=== PATIENT | female | born 1985 | race Caucasian/White ===

== ENCOUNTER 2020-04-29 01:19 | Emergency (ER) | payer OTHER ==
--- NOTE | 2020-04-29 01:40 | PDOC ---
History of Present Illness - General Chief Complaint: ,Possible Stated Complaint: CONTROL PROBLEM Time Seen by Provider: 04/29/20 01:25 History Source: Patient - History of Present Illness Initial Comments: 04/29/20 02:56 34-year-old female reports that she had unprotected sex 2 days ago patient is looking for Plan B. Patient reports that she went to a local pharmacies and Plan B is at a start. Patient is worried that she will get if she does not take Plan B. Denies abdominal pain, nausea, vomiting. Last menstrual period 04/09 No past medical history Current every day smoker Review of Systems - Review of Systems Able to Perform ROS?: Yes Is the patient limited [place] proficient: No Constitutional: No: Symptoms Reported, See HPI, Chills, Diaphoresis, Fever, Loss of Appetite, Malaise, Night Sweats, Weakness, Weight Stable, Unintentional Wgt. Loss, Unexplained wgt Loss, Other *Physical Exam - Physical Exam General Appearance: Yes: Appropriately Dressed HEENT: positive: Normal ENT Inspection Integumentary: positive: Normal Color, Dry, Warm Neurologic: positive: Fully Oriented, Alert, Normal Mood/Affect Medical Decision Making - Medical Decision Making 04/29/20 03:00 A: encounter for emergency contraception P: plan b ua urine Discharge - Discharge Information Problems reviewed: Yes Clinical Impression/Diagnosis: Emergency contraceptive counseling and treatment Disposition: HOME - Follow up/Referral - Patient Discharge Instructions Patient Printed Discharge Instructions: Emergency Contraception - Post Discharge Activity
--- NOTE | 2020-04-29 01:51 | PDOC ---
Medical Decision Making - Medical Decision Making 04/29/20 01:51 Patient seen by the advanced practice provider under my supervision. Ancillary testing reviewed as necessary. I agree with plan as outlined by the advanced practice provider. Discharge - Discharge Information Problems reviewed: Yes Clinical Impression/Diagnosis: Emergency contraceptive counseling and treatment Condition: Stable Disposition: HOME - Follow up/Referral - Patient Discharge Instructions Patient Printed Discharge Instructions: Emergency Contraception - Post Discharge Activity
[2020-04-29 02:46] LABS: URINE APPEARANCE CLOUDY; URINE BILIRUBIN NEGATIVE (NEGATIVE); URINE COLOR YELLOW; URINE GLUCOSE (UA) NEGATIVE (NEGATIVE); URINE KETONE NEGATIVE (NEGATIVE); URINE LEUK ESTERASE NEGATIVE (NEGATIVE); URINE NITRITE NEGATIVE (NEGATIVE); URINE PROTEIN NEGATIVE (NEGATIVE); URINE UROBILINOGEN 0.2 mg/dL (0.2-1.0)
[2020-04-29 02:48] LABS: HCG,QUALITATIVE URINE Negative
[2020-04-29] MEDS ORDERED: LEVONORGESTREL 1.5 MG TABLET (PLAN B ONE-STEP) PO ×2 (02:55→03:12)
[2020-04-29 03:09] VITALS: BP 106/73; PULSE 68; TEMP 98.5; BMI 27.3
[2020-04-29 03:51] LABS: EPI CELLS >36 /uL (0-25.1); HYALINE CASTS 6 /uL (0-3.1); URINE BACTERIA 2067 /uL (0-1359); URINE WBC 54 /uL (0-25.8)
[2020-04-29 04:14] LABS: URINE RBC 3 /uL (0-23.9)
== END 2020-04-29 03:17 | disposition home or self-care (01) ==
LOC: JER 01:19
DX: Z30.9 Encounter for contraceptive management, unspecified (principal)
CPT/HCPCS: 81003; 84703; 99282-25

== ENCOUNTER 2020-11-27 00:47 | Emergency (ER) | payer OTHER ==
[2020-11-27 00:57] VITALS: BP 148/82; PULSE 87; TEMP 98.5; BMI 27.4
[2020-11-27] MEDS ORDERED: ACETAMINOPHEN 1000 MG/100 ML BAG IVPB ONE (01:55)
[2020-11-27 02:38] LABS: BASO % 0.4 % (0-2.0); EOS % 1.7 % (0-4.5); HEMATOCRIT 38.7 % (32.4-45.2); HEMOGLOBIN 13.2 GM/dL (10.7-15.3); LYMPH % 23.5 % (8-40); MCH 31.7 pg (25.7-33.7); MCHC 34.2 g/dl (32.0-36.0); MEAN CELL VOLUME 92.8 fl (80-96); MONO % 9.2 % (3.8-10.2); NEUT % 65.2 % (42.8-82.8); PLATELET COUNT 383 K/MM3 (134-434); RBC 4.17 M/mm3 (3.60-5.2); RDW 13.5 % (11.6-15.6); WHITE BLOOD COUNT 10.8 K/mm3 (4.0-10.0)
[2020-11-27 02:55] LABS: CHLORIDE 107 mmol/L (98-107); SODIUM 141 mmol/L (136-145)
[2020-11-27 02:57] LABS: CALCIUM 8.5 mg/dL (8.5-10.1); GLUCOSE,RANDOM 106 mg/dL (74-106)
[2020-11-27 02:58] LABS: ALBUMIN 3.4 g/dl (3.4-5.0); ANION GAP 7 MMOL/L (8-16); BLOOD UREA NITROGEN 14.1 mg/dL (7-18); CO2 27 mmol/L (21-32)
[2020-11-27 03:00] LABS: CREATININE 0.7 mg/dL (0.55-1.3)
[2020-11-27 03:01] LABS: SGOT/AST 10 U/L (15-37); SGPT/ALT 47 U/L (13-61)
[2020-11-27 03:02] LABS: BILIRUBIN,TOTAL 0.3 mg/dL (0.2-1); LDH 170 U/L (84-246); TOT PROT 7.3 g/dl (6.4-8.2)
[2020-11-27 03:03] LABS: ALK PHOS 83 U/L (45-117)
[2020-11-27] MEDS ORDERED: KETOROLAC TROMETHAMINE 15 MG/ML VIAL IVPUSH ONE (05:12)
[2020-11-27] MEDS ORDERED: KETOROLAC TROMETHAMINE 15 MG/ML VIAL ONE (05:13)
[2020-11-27] MEDS: KETOROLAC TROMETHAMINE 15 MG/ML VIAL IM ONE ×2 (05:28→05:33)
== END 2020-11-27 06:18 | disposition left against medical advice (07) ==
LOC: JER 00:47
PROC: 3E0233Z Introduction of Anti-inflammatory into Muscle, Percutaneous Approach (ICD-10-PCS; principal; 2020-11-27)
PROC: 3E033NZ Introduction of Analgesics, Hypnotics, Sedatives into Peripheral Vein, Percutaneous Approach (ICD-10-PCS; 2020-11-27)
DX: R06.02 Shortness of breath (principal); R91.8 Other nonspecific abnormal finding of lung field
CPT/HCPCS: 36415; 71275-TC; 80053; 82728; 83615; 84484; 85025; 85379; 86140; 93005; 93010; 99285-25; C9803; J0131; U0003

== ENCOUNTER 2020-12-09 08:35 | Emergency (ER) | payer OTHER ==
[2020-12-09 08:51] VITALS: BMI 23.8
[2020-12-09 11:02] LABS: HEMATOCRIT 38.6 % (32.4-45.2); HEMOGLOBIN 12.8 GM/dL (10.7-15.3); MCH 30.6 pg (25.7-33.7); MCHC 33.1 g/dl (32.0-36.0); MEAN CELL VOLUME 92.4 fl (80-96); PLATELET COUNT 474 K/MM3 (134-434); RBC 4.18 M/mm3 (3.60-5.2); RDW 13.8 % (11.6-15.6); WHITE BLOOD COUNT 6.6 K/mm3 (4.0-10.0)
[2020-12-09 11:40] LABS: POTASSIUM 4.5 mmol/L (3.5-5.1)
[2020-12-09 11:43] LABS: ALBUMIN 3.1 g/dl (3.4-5.0); BLOOD UREA NITROGEN 13.9 mg/dL (7-18)
[2020-12-09 11:46] LABS: CREATININE 0.6 mg/dL (0.55-1.3)
[2020-12-09 11:48] LABS: BILIRUBIN,TOTAL 0.1 mg/dL (0.2-1); TOT PROT 6.8 g/dl (6.4-8.2)
[2020-12-09 16:15] VITALS: BP 144/99; PULSE 81; TEMP 98.3
== END 2020-12-09 16:14 | disposition home or self-care (01) ==
LOC: JER 08:35 → JERBED 13:50 → UNDOADMIN 13:50 → JER 16:14
DX: R06.02 Shortness of breath (principal); J90 Pleural effusion, not elsewhere classified
CPT/HCPCS: 36415; 71046-TC-FY; 80053; 84703; 85027; 93005; 93010; 99285-25; C9803; U0003

== ENCOUNTER 2022-04-11 23:53 | Emergency (ER) | payer OTHER ==
[2022-04-12 00:05] VITALS: BP 115/78; PULSE 89; TEMP 98.1; BMI 26.2
[2022-04-12] MEDS ORDERED: KETOROLAC TROMETHAMINE 30 MG/1 ML VIAL IM ONE (01:44)
[2022-04-12] MEDS ORDERED: KETOROLAC TROMETHAMINE 30 MG/1 ML VIAL ONE (02:01)
[2022-04-12] MEDS ORDERED: CLINDAMYCIN 600MG PREMIX IVPB 600 MG/50 ML BAG IVPB ONE ×2 (02:08→02:11)
== END 2022-04-12 02:54 | disposition left against medical advice (07) ==
LOC: JER 23:53
PROC: 3E023GC Introduction of Other Therapeutic Substance into Muscle, Percutaneous Approach (ICD-10-PCS; principal; 2022-04-11)
PROC: 3E033GC Introduction of Other Therapeutic Substance into Peripheral Vein, Percutaneous Approach (ICD-10-PCS; principal; 2022-04-11)
DX: K04.7 Periapical abscess without sinus (principal)
CPT/HCPCS: 99284-25